=== PATIENT | female | born 1965 | race Caucasian/White ===

== ENCOUNTER 2019-10-30 09:31 | Emergency (ER) | payer MEDICAID ==
[~2019-10-30] VITALS: Ht 152.4 cm; Wt 86.2 kg
--- NOTE | 2019-10-30 11:13 | NUR ---
Dr. Knapp is evaluating the patient at bedside.
[2019-10-30] MEDS ORDERED: SULFAMETH/TRIMETH DS 800/160MG 1 TAB PO ONE (12:05)
[2019-10-30] MEDS ORDERED: IBUPROFEN 600 MG TAB PO ONE (12:05)
[2019-10-30] MEDS ORDERED: CEPHALEXIN 500 MG CAP PO ONE (12:05)
[2019-10-30 12:38] VITALS: BP 141/90
--- NOTE | 2019-10-30 12:40 | NUR ---
Patient discharged with v/s stable. Written and verbal after care instructions given and explained. Patient verbalized understanding. Ambulatory with steady gait. All questions addressed prior to discharge. Advised to follow up with PMD.
== END 2019-10-30 12:31 | disposition home or self-care (01) ==
LOC: MED 09:31
DX: S93.402A Sprain of unspecified ligament of left ankle, initial encounter (principal); L03.116 Cellulitis of left lower limb; W18.30XA Fall on same level, unspecified, initial encounter; Y93.89 Activity, other specified; Y92.89 Other specified places as the place of occurrence of the external cause; Y99.8 Other external cause status
CPT/HCPCS: 73610; 99284